=== PATIENT | male | born 1980 ===

== ENCOUNTER → 2018-07-11 | Outpatient (CLI) | payer MEDICAID ==
[~2018-07-11] MED LIST: GADOBUTROL 10 ML VIAL IVP ONE
== END ==
LOC: FIMAGING 06:44
PROVIDERS: ATTEND Internal Medicine Cardiovascular Disease
DX: Z13.6 Encounter for screening for cardiovascular disorders (principal); R93.1 Abnormal findings on diagnostic imaging of heart and coronary circulation; I49.9 Cardiac arrhythmia, unspecified; Z82.41 Family history of sudden cardiac death
CPT/HCPCS: A9585